=== PATIENT | female | born 1945 | race Native Hawaiian/Other Pacific Islander ===

== ENCOUNTER 2016-07-19 13:50 | Outpatient (CLI) | payer OTHER, BC ==
[2016-07-19 14:32] LABS: PLATELET COUNT 190 K/uL (152-353)
[2016-07-19 15:16] LABS: POTASSIUM 3.6 mmol/L (3.6-5.2); SODIUM 139 mmol/L (136-145)
== END 2016-07-19 19:50 | disposition home or self-care (01) ==
LOC: LAB 13:50
PROVIDERS: Nurse Practitioner Family
DX: Z00.00 Encounter for general adult medical examination without abnormal findings (principal); R53.83 Other fatigue; R53.81 Other malaise; E55.9 Vitamin D deficiency, unspecified; Z79.899 Other long term (current) drug therapy; Z51.81 Encounter for therapeutic drug level monitoring
CPT/HCPCS: 80053; 80061; 82306; 82607; 83036; 84443; 85027

== ENCOUNTER 2016-07-30 10:41 | Outpatient (CLI) | payer OTHER, BC | END 2016-07-30 19:13 | disposition home or self-care (01) | LOC: RAD 10:41 | DX: M81.8 Other osteoporosis without current pathological fracture (principal) ==

== ENCOUNTER 2016-10-18 13:59 | Outpatient (CLI) | payer OTHER, BC | END 2016-10-18 15:00 | disposition home or self-care (01) | LOC: RAD 13:59 | DX: M25.552 Pain in left hip (principal); M54.32 Sciatica, left side ==

== ENCOUNTER 2017-01-11 10:40 | Outpatient (CLI) | payer OTHER, BC | END 2017-01-11 19:14 | disposition home or self-care (01) | LOC: MAMMO 10:40 | DX: C50.911 Malignant neoplasm of unspecified site of right female breast (principal) ==

== ENCOUNTER 2017-02-26 11:04 | Outpatient (CLI) | payer OTHER, BC | END 2017-02-26 12:30 | disposition home or self-care (01) | LOC: US 11:04 | DX: N64.4 Mastodynia (principal); Z85.3 Personal history of malignant neoplasm of breast; R07.81 Pleurodynia; R06.02 Shortness of breath ==

== ENCOUNTER 2017-02-27 11:40 | Outpatient (CLI) | payer OTHER, BC ==
[2017-02-27 12:17] LABS: PLATELET COUNT 220 K/uL (152-353)
[2017-02-27 12:23] LABS: POTASSIUM 4.3 mmol/L (3.6-5.2); SODIUM 137 mmol/L (136-145)
== END 2017-02-27 18:59 | disposition home or self-care (01) ==
LOC: LAB 11:40
PROVIDERS: Nurse Practitioner Family
DX: R53.83 Other fatigue (principal); E55.9 Vitamin D deficiency, unspecified; R53.81 Other malaise; Z79.899 Other long term (current) drug therapy; Z85.3 Personal history of malignant neoplasm of breast; Z51.81 Encounter for therapeutic drug level monitoring
CPT/HCPCS: 80053; 80061; 82306; 83036; 84436; 84443; 85027

== ENCOUNTER 2017-02-28 09:30 | Outpatient (CLI) | payer OTHER, BC | END 2017-02-28 19:11 | disposition home or self-care (01) | LOC: CT 09:30 | DX: R07.89 Other chest pain (principal); M79.622 Pain in left upper arm | CPT/HCPCS: Q9963 ==

== ENCOUNTER 2017-03-04 14:46 | Outpatient (CLI) | payer OTHER, BC | END 2017-03-04 15:50 | disposition home or self-care (01) | LOC: US 14:46 | DX: E04.1 Nontoxic single thyroid nodule (principal) ==

== ENCOUNTER 2017-03-21 09:46 | Outpatient (CLI) | payer OTHER, BC | END 2017-03-21 10:50 | disposition home or self-care (01) | LOC: RESP 09:46 | DX: R06.02 Shortness of breath (principal) | CPT/HCPCS: 94640 ==

== ENCOUNTER 2017-04-30 14:31 | Outpatient (CLI) | payer OTHER, BC | END 2017-04-30 19:10 | disposition home or self-care (01) | LOC: RESP 14:31 | DX: Z01.810 Encounter for preprocedural cardiovascular examination (principal) | CPT/HCPCS: 93005 ==

== ENCOUNTER 2017-06-06 07:17 | Outpatient (CLI) | payer OTHER, BC | END 2017-06-06 09:00 | disposition home or self-care (01) | LOC: NM 07:17 | DX: E04.2 Nontoxic multinodular goiter (principal) | CPT/HCPCS: 36415; 84443; 86376; A9516 ==

== ENCOUNTER 2017-10-01 10:05 | Outpatient (CLI) | payer OTHER, BC | END 2017-10-01 22:49 | disposition home or self-care (01) | LOC: CT 10:05 | DX: R91.8 Other nonspecific abnormal finding of lung field (principal) ==

== ENCOUNTER 2018-01-29 09:30 | Outpatient (CLI) | payer OTHER, BC | END 2018-01-29 18:50 | disposition home or self-care (01) | LOC: MRI 09:30 | DX: M25.551 Pain in right hip (principal); M70.61 Trochanteric bursitis, right hip ==

== ENCOUNTER 2018-03-25 09:50 | Outpatient (CLI) | payer OTHER, BC | END 2018-03-25 21:24 | disposition home or self-care (01) | LOC: CT 09:50 | DX: R91.8 Other nonspecific abnormal finding of lung field (principal) ==

== ENCOUNTER 2018-04-03 12:51 | Outpatient (CLI) | payer OTHER, BC | END 2018-04-03 23:28 | disposition home or self-care (01) | LOC: MRI 12:51 | DX: M54.5 Low back pain (principal); M51.36 Other intervertebral disc degeneration, lumbar region; M54.16 Radiculopathy, lumbar region ==

== ENCOUNTER 2018-09-16 07:56 | Outpatient (CLI) | payer OTHER, BC | END 2018-09-16 20:28 | disposition home or self-care (01) | LOC: NM 07:56 | DX: R06.02 Shortness of breath (principal); R53.83 Other fatigue; R07.89 Other chest pain; R68.84 Jaw pain | CPT/HCPCS: A9500; J2785 ==

== ENCOUNTER 2018-11-20 14:26 | Outpatient (CLI) | payer OTHER, BC ==
[2018-11-20 15:04] LABS: PLATELET COUNT 186 K/uL (152-353)
[2018-11-20 16:19] LABS: POTASSIUM 3.9 mmol/L (3.6-5.2)
== END 2018-11-20 20:20 | disposition home or self-care (01) ==
LOC: LAB 14:26
PROVIDERS: Family Medicine
DX: E04.1 Nontoxic single thyroid nodule (principal); R53.83 Other fatigue; E63.8 Other specified nutritional deficiencies; M25.561 Pain in right knee; E55.9 Vitamin D deficiency, unspecified; E53.8 Deficiency of other specified B group vitamins; C50.919 Malignant neoplasm of unspecified site of unspecified female breast; M25.50 Pain in unspecified joint
CPT/HCPCS: 80053; 82306; 82607; 82746; 84439; 84443; 84481; 85027; 85651; 86038; 86140; 86430

== ENCOUNTER 2018-11-21 09:49 | Outpatient (CLI) | payer OTHER, BC | END 2018-11-21 21:42 | disposition home or self-care (01) | LOC: RAD 09:49 | DX: Z13.820 Encounter for screening for osteoporosis (principal); N95.8 Other specified menopausal and perimenopausal disorders ==

== ENCOUNTER 2018-11-26 14:18 | Outpatient (CLI) | payer OTHER, BC | END 2018-11-26 23:50 | disposition home or self-care (01) | LOC: RAD 14:18 | DX: M54.5 Low back pain (principal); M25.561 Pain in right knee; M25.562 Pain in left knee ==

== ENCOUNTER 2019-02-02 19:03 | Outpatient (CLI) | payer OTHER, BC | END 2019-02-02 19:15 | disposition home or self-care (01) | LOC: LAB 19:03 | DX: E04.1 Nontoxic single thyroid nodule (principal) | CPT/HCPCS: 84439; 84443; 84481 ==

== ENCOUNTER 2019-03-12 08:04 | Outpatient (CLI) | payer OTHER, BC | END 2019-03-12 19:10 | disposition home or self-care (01) | LOC: NM 08:04 | DX: R11.0 Nausea (principal) | CPT/HCPCS: A9541 ==

== ENCOUNTER 2019-03-30 10:05 | Outpatient (CLI) | payer OTHER, BC | END 2019-03-30 19:10 | disposition home or self-care (01) | LOC: CT 10:05 | DX: J47.9 Bronchiectasis, uncomplicated (principal) ==

== ENCOUNTER 2019-10-12 17:34 | Outpatient (CLI) | payer OTHER, BC ==
[2019-10-12 17:54] LABS: PLATELET COUNT 182 K/uL (152-353)
[2019-10-12 18:11] LABS: POTASSIUM 3.6 mmol/L (3.6-5.2)
== END 2019-10-12 19:33 | disposition home or self-care (01) ==
LOC: LAB 17:34
PROVIDERS: Nurse Practitioner
DX: R53.83 Other fatigue (principal); Z79.899 Other long term (current) drug therapy
CPT/HCPCS: 80053; 80061; 82306; 82607; 84439; 84443; 85027

== ENCOUNTER 2020-02-25 13:56 | Outpatient (CLI) | payer OTHER, BC | END 2020-02-25 20:25 | disposition home or self-care (01) | LOC: CT 13:56 | DX: M54.12 Radiculopathy, cervical region (principal) ==

== ENCOUNTER 2020-03-07 11:01 | Outpatient (CLI) | payer OTHER, BC | END 2020-03-07 23:16 | disposition home or self-care (01) | LOC: RAD 11:01 | PROVIDERS: ATTEND Physician Assistant | DX: M25.511 Pain in right shoulder (principal); M54.2 Cervicalgia ==

== ENCOUNTER 2020-05-30 09:56 | Outpatient (CLI) | payer OTHER, BC | END 2020-05-30 22:41 | disposition home or self-care (01) | LOC: RAD 09:56 | PROVIDERS: ATTEND Internal Medicine Hematology & Oncology | DX: C50.512 Malignant neoplasm of lower-outer quadrant of left female breast (principal); N95.8 Other specified menopausal and perimenopausal disorders ==

== ENCOUNTER 2020-07-19 10:03 | Outpatient (CLI) | payer OTHER, BC | END 2020-07-19 20:16 | disposition home or self-care (01) | LOC: CT 10:03 | PROVIDERS: ATTEND Internal Medicine | DX: R10.84 Generalized abdominal pain (principal) ==

== ENCOUNTER 2021-02-18 09:15 | Emergency (ER) | payer OTHER, BC ==
[~2021-02-18] VITALS: Ht 177.8 cm; Wt 62.6 kg
[2021-02-18 09:15] VITALS: TEMP 97.5
[2021-02-18] MEDS ORDERED: PANTOPRAZOLE 40MG TA PO (09:28)
[2021-02-18 10:30] VITALS: BP 149/78
== END 2021-02-18 10:30 | disposition home or self-care (01) ==
LOC: ED 09:15
DX: S32.020A Wedge compression fracture of second lumbar vertebra, initial encounter for closed fracture (principal); S32.030A Wedge compression fracture of third lumbar vertebra, initial encounter for closed fracture; W01.0XXA Fall on same level from slipping, tripping and stumbling without subsequent striking against object, initial encounter; Y92.098 Other place in other non-institutional residence as the place of occurrence of the external cause
CPT/HCPCS: 99283

== ENCOUNTER 2021-02-22 10:48 | Outpatient (CLI) | payer OTHER, BC ==
[~2021-02-22 10:48] MED LIST: PANTOPRAZOLE 40MG TA PO
== END 2021-02-22 22:37 | disposition home or self-care (01) ==
LOC: MRI 10:48
PROVIDERS: ATTEND Physician Assistant
DX: M47.896 Other spondylosis, lumbar region (principal)

== ENCOUNTER 2021-03-18 16:08 | Emergency (ER) | payer OTHER, BC ==
[~2021-03-18] VITALS: Ht 177.8 cm; Wt 61.2 kg
[2021-03-18 19:20] VITALS: BP 146/84; TEMP 98.4
== END 2021-03-18 19:20 | disposition home or self-care (01) ==
LOC: ED 16:08
DX: R20.2 Paresthesia of skin (principal); M50.322 Other cervical disc degeneration at C5-C6 level; M51.37 Other intervertebral disc degeneration, lumbosacral region; Z91.81 History of falling
CPT/HCPCS: 96372; 99283; J1100; J1885

== ENCOUNTER 2021-04-26 10:28 | Outpatient (CLI) | payer OTHER, BC | END 2021-04-26 20:00 | disposition home or self-care (01) | LOC: LAB 10:28 | PROVIDERS: ATTEND Internal Medicine | DX: U07.1 COVID-19 (principal) | CPT/HCPCS: 87635; U0003 ==

== ENCOUNTER 2021-07-22 17:27 | Emergency (ER) | payer OTHER, BC ==
[~2021-07-22] VITALS: Ht 177.8 cm; Wt 62.1 kg
[2021-07-22 18:26] VITALS: BP 176/82; TEMP 98.1
== END 2021-07-22 18:26 | disposition home or self-care (01) ==
LOC: ED 17:27
PROC: 0HQ0XZZ Repair Scalp Skin, External Approach (ICD-10-PCS; principal; 2021-07-22)
DX: S01.01XA Laceration without foreign body of scalp, initial encounter (principal); W01.198A Fall on same level from slipping, tripping and stumbling with subsequent striking against other object, initial encounter; Y93.89 Activity, other specified; Y92.017 Garden or yard in single-family (private) house as the place of occurrence of the external cause
CPT/HCPCS: 90471; 90715; 99283; J2001

== ENCOUNTER 2021-08-29 11:12 | Outpatient (CLI) | payer OTHER, BC | END 2021-08-29 18:59 | disposition home or self-care (01) | LOC: RAD 11:12 | PROVIDERS: ATTEND Internal Medicine | DX: M72.2 Plantar fascial fibromatosis (principal) ==

== ENCOUNTER 2021-11-27 17:30 | Outpatient (CLI) | payer OTHER, BC ==
[2021-11-27 17:44] LABS: PLATELET COUNT 195 K/uL (152-353)
[2021-11-27 18:03] LABS: POTASSIUM 3.8 mmol/L (3.6-5.2)
== END 2021-11-27 19:02 | disposition home or self-care (01) ==
LOC: LAB 17:30
PROVIDERS: ATTEND Internal Medicine
DX: Z00.00 Encounter for general adult medical examination without abnormal findings (principal); Z13.820 Encounter for screening for osteoporosis; Z79.899 Other long term (current) drug therapy
CPT/HCPCS: 80053; 80061; 82306; 84439; 84443; 85027

== ENCOUNTER 2022-08-23 11:08 | Outpatient (CLI) | payer OTHER, BC | END 2022-08-23 19:06 | disposition home or self-care (01) | LOC: RAD 11:08 | PROVIDERS: ATTEND Internal Medicine | DX: S80.01XA Contusion of right knee, initial encounter (principal); S40.011A Contusion of right shoulder, initial encounter; M54.2 Cervicalgia; R07.89 Other chest pain; Y92.89 Other specified places as the place of occurrence of the external cause ==

== ENCOUNTER 2023-06-10 10:21 | Outpatient (CLI) | payer OTHER, BC | END 2023-06-10 18:52 | disposition home or self-care (01) | LOC: RAD 10:21 | PROVIDERS: ATTEND Internal Medicine | DX: M25.531 Pain in right wrist (principal); E55.9 Vitamin D deficiency, unspecified; M06.4 Inflammatory polyarthropathy; M17.0 Bilateral primary osteoarthritis of knee; M19.071 Primary osteoarthritis, right ankle and foot ==